=== PATIENT | female | born 1950 ===

== ENCOUNTER 2017-12-01 08:56 | Outpatient (CLI) | payer OTHER | END 2017-12-01 08:59 | disposition home or self-care (01) | LOC: RX STUDY 08:56 | DX: J44.9 Chronic obstructive pulmonary disease, unspecified (principal); I25.9 Chronic ischemic heart disease, unspecified; N64.0 Fissure and fistula of nipple; K22.9 Disease of esophagus, unspecified ==

== ENCOUNTER 2017-12-01 10:23 | Outpatient (CLI) | payer OTHER | END 2017-12-01 10:43 | disposition home or self-care (01) | LOC: T RESPIRAT 10:23 | DX: J44.9 Chronic obstructive pulmonary disease, unspecified (principal); I25.9 Chronic ischemic heart disease, unspecified ==